=== PATIENT | female | born 1940 | race Caucasian/White ===

== ENCOUNTER 2016-02-04 14:23 | Inpatient (IN) | payer OTHER, MEDICARE ==
--- NOTE | 2016-01-29 22:13 | MH ---
cc: SOTO JOHNSON DATE OF ADMISSION 02/22/2016 PREOPERATIVE DIAGNOSIS Osteoarthritis right hip. PROCEDURE Right total hip arthroplasties. CHIEF COMPLAINT AND HISTORY OF PRESENT ILLNESS This 75-year-old female has a greater than one-year history of right hip and knee pain. The patient initially presented for knee pain at which time it was noted that she had advanced changes involving her right hip. Her knee x-ray showed actually more involvement of her contralateral knee. The patient was referred for an intra-articular injection of the right hip which did improve both her right hip and knee symptomatology for several months. The patient, however, has had recurrence. She is very limited in her activity. She has been unresponsive to nonoperative measures including nonsteroidal anti-inflammatory medication, activity modification, injection and attempts at weight loss. X-rays do show advanced osteoarthritic changes involving the right hip with [id number] apposition, osteophyte formation and subchondral sclerosis. Given the alternatives of treatment, the patient presents for total hip arthroplasty at this time. PAST MEDICAL HISTORY 1. History of squamous cell cancer, 2. Depression, 3. Hypertension, 4. Hyperlipidemia 5. Osteoporosis. PAST SURGICAL HISTORY 1. Appendectomy. 2. Skin cancer removal 3. Breast biopsy 4. Nasal polyp removal, 5. Hysterectomy, 6. Appendectomy 7. Tonsillectomy. ALLERGIES ADHESIVE TAPE AUGMENTIN BEE VENOM EPINEPHRINE LORTAB VELOSEF MEDICATIONS Current are 1. Tylenol #3 2. Alprazolam 0.5 mg. 3. Atorvastatin 80 mg. 4. Azithromycin 250 mg. 5. Diclofenac 75 mg 6. Glycerin 45 mcg. 7. Furosemide 20 mg. 8. Lisinopril. 9. Hydrochlorothiazide 10/12.5. 10. Meloxicam 11. Potassium chloride ER 10 mEq. 12. Sertraline 100 mg. 13. Tizanidine 2 mg. 14. Tramadol 50 mg 15. Triamcinolone 0.1% topical FAMILY HISTORY History of heart disease, glaucoma, thyroiditis and diabetes. SOCIAL HISTORY The patient denies tobacco use. She uses alcohol occasionally. She is [id number]. REVIEW OF SYSTEMS Otherwise noncontributory. PHYSICAL EXAMINATION VITAL SIGNS: Height 5 feet 2 inches, weight 220, BMI 40.2, blood pressure 114/82 GENERAL: An otherwise healthy female in no obvious distress. HEENT: Normocephalic, atraumatic. Pupils equal, round and reactive to light. Extraocular muscles are intact. Oropharynx is clear. NECK: Supple. LUNGS: Clear to auscultation. HEART: Regular rate and rhythm. ABDOMEN: Soft, nondistended. Bowel sounds are present. and RECTAL: Examinations are deferred. EXTREMITIES: No cyanosis, clubbing or edema. She has a marked restricted active and passive range of motion of the right hip. This tracked pain to the groin, thigh and knee regions. The right knee has a mild fullness of the synovium and palpable tenderness medially. She has a negative Shirlene's. She is stable to ligamentous testing. NEUROLOGIC: No focal deficit. She does have 2+ edema distally. ASSESSMENT Advanced osteoarthritis right hip. PLAN Given the alternatives of treatment, the patient does wish to pursue total hip arthroplasty based on the persistent nature of her symptomatology, its limitation of her daily activity and its unresponsiveness to treatment. The nature of the planned surgical procedure, risks, expected benefits, as well as the postoperative expectations have been discussed with her in detail. In addition, the alternatives of treatment risk of same were discussed. The possibility of the procedure not improving her symptomatology was discussed and she acknowledges full understanding and consents to it. MD ROSLYN Aiken/ /9:07 PM /9:52 PM
[~2016-02-04] VITALS: Ht 157.5 cm; Wt 108.5 kg
[2016-02-05] MEDS ORDERED: MELA1TAB18 PO (14:05)
[2016-02-05] MEDS ORDERED: POTA10TA2 PO (14:05)
[2016-02-05] MEDS ORDERED: MISCCAP32 PO (14:05)
[2016-02-05] MEDS ORDERED: SERT-129 PO (14:05)
[2016-02-05] MEDS ORDERED: STOO100C PO (14:05)
[2016-02-05] MEDS ORDERED: LISI10TA PO (14:05)
[2016-02-05] MEDS ORDERED: MULTTAB67 PO (14:05)
[2016-02-05] MEDS ORDERED: MOBI7.5T PO (14:05)
[2016-02-05] MEDS ORDERED: MAGN200T PO (14:05)
[2016-02-05] MEDS ORDERED: ADVA100A INH (14:13)
[2016-02-05] MEDS ORDERED: ATOR40TA16 PO (14:13)
[2016-02-05] MEDS ORDERED: ZOVI400T PO (14:13)
[2016-02-05] MEDS ORDERED: ASPI81TA81 PO (14:13)
[2016-02-05] MEDS ORDERED: VENTAER INH (14:13)
[2016-02-05] MEDS ORDERED: CALC600T25 PO (14:13)
[2016-02-05] MEDS ORDERED: CHOL1TAB42 PO (14:13)
[2016-02-05] MEDS ORDERED: COEN200C4 PO (14:13)
[2016-02-05] MEDS ORDERED: BUPR150XL PO (14:13)
[2016-02-05] MEDS ORDERED: ALPR0.5T3 PO (14:13)
[2016-02-22] VITALS (8 sets, daily range): BP systolic 94–142; BP diastolic 41–70; PULSE 78–90; RESP 12–20; TEMP 97.5–98.7; O2SAT 96–100
[2016-02-22] MEDS ORDERED: SODIUM CHLORIDE 0.9% INJ 100 ML ONE (06:59)
[2016-02-22] MEDS ORDERED: VANCOMYCIN 1000 MG/NS 250 ML (for <70 kg) IV SCH ×2 (07:00)
[2016-02-22] MEDS ORDERED: CLINDAMYCIN 900 MG/NS 100 ML IV SCH ×2 (07:00)
[2016-02-22] MEDS ORDERED: GENTAMICIN SULFATE 80 MG/2 ML VIAL ONE (07:09)
[2016-02-22] MEDS ORDERED: METOPROLOL TARTRATE 25 MG TAB PO PRN (07:15)
[2016-02-22] MEDS ORDERED: INSULIN HUMAN REGULAR 1,000 UNITS/10 ML VIAL SQ PRN (07:15)
[2016-02-22] MEDS ORDERED: SODIUM CHLORID 0.9% 500 ML IV SCH (07:15)
[2016-02-22] MEDS ORDERED: FURO1TAB62 PO (07:19)
[2016-02-22] MEDS: LACTATED RINGER'S 1000 ML IV SCH (07:29)
[2016-02-22] MEDS: CHLORHEXIDINE GLUCONATE 4% SOLN 120 ML BTL TOP SCH (07:29)
[2016-02-22] MEDS ORDERED: MIDAZOLAM HCL 5 MG/5 ML VIAL ONE ×2 (07:40→12:00)
[2016-02-22] MEDS ORDERED: ACETAMINOPHEN 1000 MG/100 ML VIAL IV ONE (07:40)
[2016-02-22] MEDS ORDERED: FAMOTIDINE 20 MG/2 ML VIAL ONE (07:40)
[2016-02-22] MEDS ORDERED: DEXAMETHASONE SOD PHOS 4 MG/ML VIAL ONE (07:41)
[2016-02-22] MEDS ORDERED: ONDANSETRON HCL 4 MG/2 ML VIAL ONE (07:41)
[2016-02-22] MEDS ORDERED: fentaNYL CITRATE 250 MCG/5 ML AMP ONE ×2 (07:41→11:31)
--- NOTE | 2016-02-22 11:13 | PD.OP ---
cc: Ariel Ruiz MD Operative Report Date of Surgery: Feb 22, 2016 Preoperative Diagnosis: (1) Osteoarthritis of right hip Postoperative Diagnosis: (1) Osteoarthritis of right hip Procedure: Right total hip arthroplasty Implants used: Biomet Bi-Metric size 10 press-fit femoral component, size 50 press-fit acetabular cup with a 36 mm ceramic head and a +6 neck length with 2 acetabular screws Anesthesia: General Surgeon: Ariel Ruiz Business Development Assistant(s): Monisha Naidu PA-C (Ashley) The surgical procedure was assisted by my physician's library serials assistant. Her presence was necessary throughout the case for manipulation and positioning of the surgical extremity. My PA was assisting me throughout the duration of this procedure. The skill set of the physician library serials assistant was medically necessary to complete this procedure. During the surgical case the assembler surgical garment was working at the back table and the physician library serials assistant was directly assisting me. Operation and Findings: Indications: This 75-year-old female has a greater than one-year history of right hip and knee pain. Patient initially presented for knee pain which time was noted she had advanced changes involving her right hip. She was referred for an intra-articular injection which did improve both her right hip and knee symptomatology for several months. She has however had a recurrence. His been progressive. She is very limited in her activity. X-rays are consistent with advanced osteoarthritic changes with [id number] apposition, osteophyte formation and subchondral sclerosis. Given the alternatives of the treatment she presents for total hip arthroplasty. Procedure and findings: The patient was taken to the operative suite and after undergoing an adequate level of general anesthesia was placed in the lateral decubitus position on the operating table. Preoperative antibiotics consisted of vancomycin 1 g IV and clindamycin 900 mg IV. The right lower extremity was then prepped and draped in usual sterile fashion with alcohol and Hibiclens. A standard posterior lateral approach the hip was made with an incision centered over the greater trochanter. This was carried down to skin and subcutaneous tense tissue with a knife. Hemostasis was obtained with cautery. The iliotibial band was identified distally and the gluteus kieran fascia proximally. These were split longitudinally. This brought the greater trochanteric bursa into view which was partially excised. The short external rotators were released from the posterior aspect of the femur up to the level of the piriformis. This was tagged. The sciatic nerve was palpable in the depths of the wound and avoided. A T capsulotomy incision was made. A joint effusion was evacuated. The hip was then easily dislocated. She was noted to be marked degenerative changes with total obliteration of the articular cartilage. A neck cut was made utilizing an osteotomy guide. The head was then sized on the back table. The labrum was excised. Soft tissue was removed from the floor of the acetabulum. The exposure was difficult secondary to the patient's morbid obesity. The acetabulum was then sequentially reamed up to a size 49 in approximately 45 of abduction and 25 of anteversion. A size 50 trial was seated and gave good fit and fill. There was noted to be a slight deficiency of the posterior wall. In addition, the medial floor of the acetabulum was soft and therefore cannot be deepened. This component was therefore selected. The wound was thoroughly irrigated with pulse lavage. The 50 acetabular cup was then impacted into place. 2 cancellus bone screws were seated through the cup. The liner was then seated. Attention was then focused on the proximal femur which was sequentially reamed and broached up to a size 10. With the size [address] trial reductions were completed. The +6 neck length gave the best range of motion and stability with equalization of limb lengths. These components were therefore selected. The wound was again thoroughly irrigated with pulse lavage. The size 10 Bi-Metric stem was then impacted in the place. The 36 ceramic head was then impacted onto the proximal aspect of the stem with a Rosas taper fit. Reduction was then accomplished and good range of motion, stability and equalization of limb lengths again noted. The wound was again thoroughly irrigated with pulse lavage. Hemovac drains were left in place. Incision was closed in layers utilizing #1 Tycron and #1 Vicryl on the posterior capsule, #1 Vicryl on the iliotibial band and gluteus Kieran fascia, 0 Vicryl suture on the deep tissue, 2-0 Vicryl suture and the subcutaneous tense tissue and caden on the skin. Sterile dressings were applied, the patient was placed into an abduction pillow, awakened and transferred to the hospital bed. He was then taken to the recovery room in stable condition. Estimated blood loss: 800 cc Complications: None Ariel Ruiz MD Feb 22, 2016 11:13
[2016-02-22] MEDS ORDERED: diphenhydrAMINE HCL 50 MG/ML VIAL IV PRN (11:15)
[2016-02-22] MEDS ORDERED: NALOXONE HCL 0.4 MG/ML AMP IV PRN (11:15)
[2016-02-22] MEDS ORDERED: MORPHINE SULFATE 8 MG/ML INJ IV PUSH PRN (11:15)
[2016-02-22] MEDS ORDERED: ONDANSETRON HCL 4 MG/2 ML VIAL IVP PRN (11:15)
[2016-02-22] MEDS ORDERED: BISACODYL 10 MG SUPP PR PRN (11:15)
[2016-02-22] MEDS ORDERED: MISCELLANEOUS PHARMACY INFORMATION XX ONE (11:15)
[2016-02-22] MEDS ORDERED: ACETAMINOPHEN 325 MG TAB PO PRN ×2 (11:15→22:30)
[2016-02-22] MEDS ORDERED: ALUMINUM/MAGNESIUM/SIMETH 30 ML CUP PO PRN (11:15)
[2016-02-22] MEDS ORDERED: TEMAZEPAM 15 MG CAP PO PRN (11:15)
[2016-02-22] MEDS ORDERED: POVIDONE IODINE 10% SOLN 118 ML BOTTLE TOPICAL PRN (11:15)
[2016-02-22] MEDS ORDERED: SODIUM CHLORIDE 0.9% FLUSH 5 ML FLUSH IVF PRN (11:15)
[2016-02-22] MEDS ORDERED: oxyCODONE/ACETAMINOPHEN 5 MG/325 MG TAB PO PRN (11:15)
[2016-02-22] MEDS ORDERED: Post-op Orders (for Pharmacy) MISC XX ONE (11:15)
[2016-02-22] MEDS ORDERED: MISCELLANEOUS NURSING INFORMATION XX PRN (11:15)
[2016-02-22] MEDS ORDERED: *morphine SULFATE 8 MG/ML PERIprocedure ONLY ONE (11:25)
[2016-02-22] MEDS ORDERED: DO NOT ADM ANY ANTICOAGULANT DRUGS XX PRN (11:30)
[2016-02-22] MEDS ORDERED: MORPHINE SULFATE 4 MG/ML INJ ONE (11:31)
[2016-02-22] MEDS ORDERED: *RESP: ALBUTEROL 2.5 MG/3 ML NEB (PRN) PERIprocedural Use ONLY NEB ONE (11:44)
[2016-02-22] MEDS ORDERED: LACTATED RINGER'S 1000 ML INJ 2,000 ML IV ONE (12:00)
[2016-02-22] MEDS ORDERED: ONDANSETRON HCL 4 MG/2 ML VIAL IV PUSH ONE (12:00)
[2016-02-22] MEDS: MORPHINE SULFATE 30 MG/30 ML PCA IV SCH (12:20)
[2016-02-22 12:21] LABS: HEMATOCRIT 31.4 % (35.0-46.0); REVIEW FLAG FINAL
[2016-02-22] MEDS: LACTATED RINGER'S 1000 ML INJ 1,000 ML IV SCH ×2 (12:24→21:42)
--- NOTE | 2016-02-22 13:07 | PD.CONS ---
[facility] By Reason for Consult medical management Primary Care Physician Cinthia Tolentino Diagnoses: History of Present Illness patient is a 75 y/o female with history of osteoarthritis,hypertension and dyslipidemia who underwent right total hip arthroplasty today. at the time of my evaluation she was in no acute distress but complaining of pain to the right hip. d/w the RN and reportedly was anxious earlier for which she received a dose of versed. Review of Systems Constitutional: DENIES: Fever, Weight loss, Chills, Night Sweats Eyes: DENIES: Blurred vision, Diplopia, Vision loss, Double Vision Ears, nose, mouth, throat: DENIES: Tinnitus, Vertigo, Throat pain, Epistaxis Respiratory: DENIES: Apneas, Cough, Snoring, Wheezing, Hemoptysis, Sputum production, Shortness of breath Cardiovascular: DENIES: Chest pain, Palpitations, Syncope, Dyspnea on Exertion , PND, Lower Extremity Edema, Orthopnea, Claudication Gastrointestinal: DENIES: Abdominal pain, Black stools, Bloody stools, Constipation, Diarrhea, Nausea, Vomiting, Difficulty Swallowing, Anorexia Genitourinary: DENIES: Urinary frequency, Urgency, Hematuria, Dysuria Musculoskeletal: COMPLAINS OF: Joint pain (right hip), DENIES: Muscle aches, Stiffness, Joint Swelling Integumentary: DENIES: Rash Neurologic: DENIES: Abnormal gait, Headache, Localized weakness, Paresthesias, Seizures, Speech Problems, Tremor, Poor Balance Psychiatric: COMPLAINS OF: Agitation, DENIES: Anxiety, Confusion, Mood changes , Depression, Hallucinations, Suicidal Ideation, Homicidal Ideation, Delusions Past Family Social History Allergies: Coded Allergies: Adhesives (Unverified Allergy, Severe, SKIN TEAR, 02/05/16) Augmentin (Unverified Allergy, Severe, TONGUE SWELLING, 02/05/16) Bee Sting (Verified Allergy, Severe, swelling, 02/22/16) Lortab (Unverified Allergy, Severe, ITCH, 02/05/16) Epinephrine (Unverified Adverse Reaction, Severe, SHAKING TACHYCARDIA, ) Uncoded Allergies: CHEMICALS/ PERFUMES (Allergy, Severe, REACTIVE ASTHMA, 09/09/15) VELOSEF (Allergy, Severe, VAGINAL LESIONS, 09/09/15) Past Medical History osteoarthritis hypertension dyslipidemia depression Past Surgical History right breast lumpectomy ARMINDA and BSO/ appendectomy tonsillectomy Reported Medications alprazolam lisinopril/hctz ventolin multivitamin calcium/ vit d lasix kcl sertraline oxycodone Active Ordered Medications Current Medications Chlorhexidine Gluconate 1 applic 1 applic ONCE TOP Last administered on 07:29; Start 02/22/16 at 07:00; Stop 02/25/16 at 06:59 Vancomycin HCl 1000 mg/Sodium Chloride 250 ml @ 250 mls/hr HAIRSPRING CUTTER IV Last administered on 02/22/16 07:36; Start 02/22/16 at 07:00; Stop 02/25/16 at 06:59 Clindamycin Phosphate 900 mg/ Sodium Chloride 106 ml @ 212 mls/hr HAIRSPRING CUTTER IV Last administered on 02/22/16 07:30; Start 02/22/16 at 07:00 Lactated Ringer's 1,000 ml @ 30 mls/hr Q24H IV Last administered on 02/22/16 07:29; Start 02/22/16 at 07:15 Sodium Chloride (NS 500 ml Inj) 500 ml @ 30 mls/hr [id number] IV ; Start 02/22/16 at 07:15; Stop 02/23/16 at 07:14 Insulin Human Regular (NovoLIN R INJ) See Protocol Table ... UNSCH X1 PRN SQ SEE PROTOCOL; Start 02/22/16 at 07:15; Stop 02/23/16 at 07:14 Metoprolol Tartrate 25 mg 25 mg UNSCH X1 PRN PO SEE LABEL COMMENTS; Start at 07:15; Stop 02/23/16 at 07:14 Sodium Chloride (NS Inj) 100 ml @ As Directed STK-MED ONCE .ROUTE ; Start at 06:59; Stop 02/22/16 at 07:05; Status DC Gentamicin Sulfate (Gentamicin Inj) 240 mg STK-MED ONCE .ROUTE Last administered on 02/22/16 09:00; Start 02/22/16 at 07:09; Stop 02/22/16 at 07:10; Status DC Acetaminophen (Ofirmev Inj) 1,000 mg STK-MED ONCE IV ; Start 02/22/16 at 07:40; Stop 02/22/16 at 07:43; Status DC Famotidine (Pepcid Inj) 20 mg STK-MED ONCE .ROUTE ; Start 02/22/16 at 07:40; Stop 02/22/16 at 07:43; Status DC Midazolam HCl (Versed Inj) 5 mg STK-MED ONCE .ROUTE ; Start 02/22/16 at 07:40; Stop 02/22/16 at 07:43; Status DC Fentanyl Citrate (fentaNYL INJ) 250 mcg STK-MED ONCE .ROUTE ; Start 02/22/16 at 07:41; Stop 02/22/16 at 07:43; Status DC Dexamethasone Sodium Phosphate (Decadron Inj) 4 mg STK-MED ONCE .ROUTE ; Start 02/22/16 at 07:41; Stop 02/22/16 at 07:43; Status DC Ondansetron HCl 4 mg 4 mg STK-MED ONCE .ROUTE ; Start 02/22/16 at 07:41; Stop 02/22/16 at 07:43; Status DC Lactated Ringer's (Lr 1000 ml Inj) 1,000 ml @ 125 mls/hr Q8H IV Last administered on 02/22/16t 12:24; Start 02/22/16 at 11:13 IV Flush (NS Flush) 2 ml UNSCH PRN IVF FLUSH AFTER USING IV ACCESS; Start at 11:15 IV Flush 2 ml 2 ml BID IVF ; Start 02/22/16 at 21:00 Clindamycin Phosphate/Sodium Chloride (Cleocin Inj/NS Inj) 106 ml @ 200 mls/hr Q8H IV ; Start 02/22/16 at 15:00; Stop 02/23/16 at 07:32 Miscellaneous Information (Post-op Orders (for Pharmacy)) STAT ONCE XX ; Start 02/22/16 at 11:15; Stop 02/22/16 at 11:51; Status DC Enoxaparin Sodium (Lovenox Inj) 40 mg Q24H SQ ; Start 02/23/16 at 10:00 Miscellaneous Information UNSCH PRN XX SEE LABEL COMMENTS; Start 02/22/16 at 11 :15 Miscellaneous Medication ([facility]acy Information) ONCE ONCE XX ; Start 02/21 at 11:15; Stop 02/22/16 at 11:45; Status DC Morphine Sulfate (Morphine Inj) 4 mg Q3H PRN IV PUSH Pain >7 when off UI UX WEB DEVELOPER; Start 02/22/16 at 11:15 Oxycodone/ Acetaminophen (Percocet 5-325 Mg) 1 tab Q4H PRN PO PAIN LESS THAN 5 ON SCALE; Start 02/22/16 at 11:15 Oxycodone/ Acetaminophen (Percocet 5-325 Mg) 2 tab Q4H PRN PO PAIN SCALE 5 TO 10; Start 02/22/16 at 11:15 Acetaminophen (Tylenol) 650 mg Q6H PRN PO TEMPERATURE > 101 F; Start 02/22/16 at 11:15 Multivitamins/ Minerals Therapeutic (Theragran M Tab) 1 tab BID PO ; Start 02/22 at 21:00; Stop 04/23/16 at 20:59 Ondansetron HCl (Zofran Inj) 4 mg Q6H PRN IVP NAUSEA OR VOMITING; Start at 11:15 Docusate Sodium (Colace) 100 mg BID PO ; Start 02/23/16 at 21:00 Al Hydrox/Mg Hydrox/Simethicone (Mag-Al Plus Susp Liq) 30 ml Q6H PRN PO INDIGESTION; Start 02/22/16 at 11:15 Temazepam (Restoril) 15 mg HS PRN PO SLEEP; Start 02/22/16 at 11:15 Bisacodyl (Dulcolax Supp) 10 mg DAILY PRN [place] CONSTIPATION; Start 02/22/16 at 11: 15 Magnesium Hydroxide (Milk Of Magnesia Liq) 30 ml DAILY PRN PO CONSTIPATION; Start 02/22/16 at 11:15 Povidone Iodine (Betadine 10% Top Soln) 30 applic UNSCH X1 PRN TOPICAL WOUND CARE; Start 02/22/16 at 11:15; Stop 02/24/16 at 11:14 Naloxone HCl (Narcan Inj) 0.4 mg UNSCH PRN IV RESPIRATORY RATE LESS THAN 10; Start 02/22/16 at 11:15; Stop 02/24/16 at 11:14 Diphenhydramine HCl (Benadryl Inj) 25 mg Q6H PRN IV ITCHING; Start 02/22/16 at 11:15 Morphine Sulfate (Morphine 1 Mg/ ml UI UX WEB DEVELOPER) 30 mg UNSCH IV Last administered on t 12:20; Start 02/22/16 at 11:15; Stop 02/24/16 at 11:14 UI UX WEB DEVELOPER Dosage Infused (Pha) 1 Q8HR .XX ; Start 02/22/16 at 14:00; Stop 02/24/16 at 13:59 Morphine Sulfate (*morphine INJ PERIprocedure ONLY) 8 mg STK-MED ONCE .ROUTE ; Start 02/22/16 at 11:25; Stop 02/22/16 at 11:26; Status DC Miscellaneous Information ALL NURSING DEPARTME... UNSCH PRN XX SEE LABEL COMMENTS; Start 02/22/16 at 11:30; Stop 02/23/16 at 11:29 Fentanyl Citrate (fentaNYL INJ) 250 mcg STK-MED ONCE .ROUTE ; Start 02/22/16 at 11:31; Stop 02/22/16 at 11:32; Status DC Morphine Sulfate (Morphine Inj) 4 mg STK-MED ONCE .ROUTE ; Start 02/22/16 at 11: 31; Stop 02/22/16 at 11:32; Status DC Albuterol Sulfate (*ALBUTEROL NEB PERIprocedure ONLY) 2.5 mg STK-MED ONCE NEB ; Start 02/22/16 at 11:44; Stop 02/22/16 at 11:45; Status DC Midazolam HCl (Versed Inj) 5 mg STK-MED ONCE .ROUTE ; Start 02/22/16 at 12:00; Stop 02/22/16 at 12:01; Status DC Social History no smoking or drinking. Physical Exam Vital Signs Vital Signs Date Time Temp Pulse Resp B/P Pulse Ox O2 Delivery O2 Flow Rate FiO2 02/22/16 12:30 79 15 101/52 100 Nasal Cannula 3 02/22/16 12:20 15 02/22/16 12:15 65 16 107/54 100 Nasal Cannula 3 02/22/16 12:00 81 16 108/47 100 Nasal Cannula 3 02/22/16 11:45 69 14 78/41 100 Nasal Cannula 3 02/22/16 11:30 64 16 97/45 100 Nasal Cannula 3 02/22/16 11:15 65 15 88/41 100 Nasal Cannula 3 02/22/16 11:10 96.4 77 15 102/55 100 Nasal Cannula 3 02/22/16 07:20 98.6 90 18 142/70 98 Physical Exam GENERAL: This is a well-nourished, well-developed patient, in no apparent distress. SKIN: No rashes, ecchymoses or lesions. Cool and dry. HEAD: Atraumatic. Normocephalic. No temporal or scalp tenderness. EYES: Pupils equal round and reactive. Extraocular motions intact. No scleral icterus. No injection or drainage. ENT: Nose without bleeding, purulent drainage or septal hematoma. Throat without erythema, tonsillar hypertrophy or exudate. Uvula midline. Airway patent. NECK: Trachea midline. No JVD or lymphadenopathy. Supple, nontender, no meningeal signs. CARDIOVASCULAR: Regular rate and rhythm without murmurs, gallops, or rubs. RESPIRATORY: Clear to auscultation. Breath sounds equal bilaterally. No wheezes , rales, or rhonchi. GASTROINTESTINAL: Abdomen soft, non-tender, nondistended. No hepato-splenomegaly , or palpable masses. No guarding. MUSCULOSKELETAL: Extremities without clubbing, cyanosis, or edema. No joint tenderness, effusion, or edema noted. No calf tenderness. Negative Homans sign bilaterally. NEUROLOGICAL: Awake and alert. Cranial nerves II through XII intact. Motor and sensory grossly within normal limits. Five out of 5 muscle strength in all muscle groups. Normal speech. Laboratory Laboratory Tests Test 02/22/16 02/22/16 07:10 12:00 Blood Type O NEGATIVE O NEGATIVE Antibody Screen POSITIVE Antibody Identification Anti-D Antigen Identification C Antigen - NEGATIVE Crossmatch Leukocyte-Reduced Red Blood Cells Blood Bank Comment Hemoglobin 10.2 Hematocrit 31.4 Result Diagram: 02/22/16 1200 Assessment and Plan Assessment and Plan A/P - osteoarthritis- s/p right total hip arthroplasty continue with pain control and PT- management per ortho -hypertension with hypotensive episode;hold BP meds for now- continue IV fluid will resume home BP meds gradually when BP is more stable. -dyslipidemia/ depression; resume home meds -DVT prophylaxis with lovenox- per ortho thank you for the consult. Discussed Condition With the patient and RN. Jaja Sawant MD Feb 22, 2016 13:07
[2016-02-22] MEDS ORDERED: MIDAZOLAM HCL 5 MG/5 ML VIAL IV ONE (13:30)
[2016-02-22] MEDS ORDERED: MIDAZOLAM HCL 5 MG/5 ML VIAL IV SCH (13:45)
[2016-02-22] MEDS: PCA - TOTAL MG MORPHINE DELIVERED PER SHIFT SCH ×2 (14:00→22:00)
--- NOTE | 2016-02-22 14:19 | RADRPT ---
EXAM DATE/TIME: 02/22/2016 11:31 [facility] COMPARISON: No previous studies available for comparison. INDICATIONS : Post op right hip MEDICAL HISTORY : None. SURGICAL HISTORY : None. ENCOUNTER: Initial ACUITY: 1 day PAIN SCORE: Non-responsive. LOCATION: Right hip FINDINGS: View of the right hip was obtained. Femoral neck is intact. No fracture is seen. The soft tissues are unremarkable. CONCLUSION: Total right hip prosthesis without evidence of upper pain feature. No fracture is vis ualized. Shima Sears MD on February 22, 2016 at 12:39 Board Certified Radiologist. This report was verified electronically.
[2016-02-22] MEDS ORDERED: PHENYLEPH/NS 1000 MCG/10 ML SYR IV ONE (14:46)
[2016-02-22] MEDS ORDERED: NEOSTIGMINE 3 MG/3 ML SYR IV ONE (14:46)
[2016-02-22] MEDS ORDERED: PROPOFOL 200 MG/20 ML AMP IV ONE (14:46)
[2016-02-22] MEDS ORDERED: ALBUTEROL SULFATE 90 MCG/ACT HFA 8 GM INHALER INH PRN (15:00)
[2016-02-22] MEDS: CLINDAMYCIN INJ 900 MG in SODIUM CHLORIDE 0.9% INJ 100 ML IV SCH (15:00)
[2016-02-22] MEDS ORDERED: LACTATED RINGER'S 1000 ML INJ 500 ML IV ONE ×2 (15:30→19:00)
[2016-02-22] MEDS: ALPRAZolam 0.5 MG TAB PO PRN (15:45)
[2016-02-22] MEDS ORDERED: LACTATED RINGER'S 1000 ML INJ 500 ML IV SCH (16:00)
--- NOTE | 2016-02-22 21:10 | HHI.PR ---
Addendum to Inpatient Note Addendum Reason: Additional Documentation Additional Information S: Medical team paged at approximately 2000 for Citlali. Nursing staff reports the patient is postop day 0 from total right hip replacement with a past medical history of hypertension. Citlali called for repeated blood pressures in the 70s to 80s systolic. Patient is currently asymptomatic. Blood pressure medications held earlier in the day for hypotensive blood pressures. She has had minimal urine output and less than 50cc of blood loss in her incision drain. She currently has no complaints and denies any fevers, chills, chest pain, shortness of breath, NVD, or calf tenderness. O: GENERAL: Obese 75 y/o F lying flat in bed in no acute distress. SKIN: Warm and dry. No rash. Greater than 2 seconds capillary refill. EYES: No scleral icterus. No injection or drainage. PERRLA. EOMI. HENT: Normocephalic. Atraumatic. Mucous membranes dry. CARDIOVASCULAR: Regular rate and rhythm without obvious murmurs, gallops, or rubs. RESPIRATORY: Breath sounds equal bilaterally with minor wheezes in the bilateral lung bases. GASTROINTESTINAL: Abdomen soft, non-tender, nondistended. BS WNL. MUSCULOSKELETAL: No cyanosis or edema. Strength grossly WNL. RLE: Surgical incision covered with aseptic bandage with drain in place. No visible signs of hemorrhage or infection. Surgical drain in place with less than 50 mL of blood loss. Neurovascularly intact throughout the right lower extremity. 2+ pulses. NEURO/PSYCH: Afocal. Awake, alert, and oriented x3. A: Mrs. Linton is a 75-year-old female with past medical history of hypertension who is postop day 0 presenting with asymptomatic hypotension. P: Patient currently asymptomatic and in stable condition Postop H/H: 10.2/31.4 Blood pressure recheck: 95/53 CBC, CMP, PT/INR, and PTT ordered 500 mL NS bolus ordered with a blood pressure to be rechecked after bolus Hospitalist on-call notified of patient's status Jose Daniel Gray MD R1 Feb 22, 2016 21:10
[2016-02-22] MEDS: SERTRALINE HCL 100 MG TAB PO SCH (21:39)
[2016-02-22] MEDS: SODIUM CHLORIDE 0.9% FLUSH 5 ML FLUSH IVF SCH (21:39)
[2016-02-22] MEDS: ATORVASTATIN 40 MG TAB PO SCH (21:39)
[2016-02-22 21:42] LABS: AUTOMATED NEUTROPHIL # 8.4 TH/MM3 (1.8-7.7); BASOPHIL % 0.3 % (0.0-2.0); EOSINOPHIL % 0.1 % (0.0-4.0); HEMATOCRIT 27.1 % (35.0-46.0); HEMO FLAGS DIFF FINAL; LYMPH % 9.6 % (9.0-44.0); MONO % 12.2 % (0.0-8.0); NEUT % 77.8 % (16.0-70.0); PLATELET COUNT 218 TH/MM3 (150-450); RED BLOOD COUNT 3.08 MIL/MM3 (4.00-5.30); RED CELL DISTRIBUTION WIDTH 13.4 % (11.6-17.2); WHITE BLOOD COUNT 10.8 TH/MM3 (4.0-11.0)
--- NOTE | 2016-02-22 21:47 | HHI.PR ---
Addendum to Inpatient Note Addendum Reason: Additional Documentation Additional Information Patient seen with and son at bedside. She appears pale but is otherwise experiencing asymptomatic hypotension. She reports some SOB earlier but states that this was due to right hip post-op pain. BP measured while I was at bedside was 100/50 with MAP of 66.7. Awaiting results of labs; discussed possibility of need for transfusion with the patient and the family. Discussed with nursing; perform only manual blood pressures for now. Call as soon as results of labs available. Bernadette Chávez Feb 22, 2016 21:47
[2016-02-22 21:56] LABS: APTT (PATIENT) 25.6 SEC (24.3-30.1); PROTHROMBIN TIME - PATIENT 10.7 SEC (9.8-11.6)
[2016-02-22 21:57] LABS: ANION GAP 8 MEQ/L (5-15); AST (GOT) 30 U/L (15-37); BICARBONATE 24.8 MEQ/L (21.0-32.0); BLOOD UREA NITROGEN 18 MG/DL (7-18); CHLORIDE 107 MEQ/L (98-107); GLOMERULAR FILTRATION RATE 44 ML/MIN (>89); SODIUM (NA) 140 MEQ/L (136-145)
[2016-02-22 22:01] LABS: ALKALINE PHOSPHATASE 76 U/L (45-117); ALT (GPT) 39 U/L (10-53); TOTAL BILIRUBIN ADULT 0.6 MG/DL (0.2-1.0)
[2016-02-22] MEDS ORDERED: FUROSEMIDE 20 MG/2 ML VIAL IV ONE (22:30)
[2016-02-22] MEDS ORDERED: diphenhydrAMINE HCL 25 MG CAP PO PRN (22:30)
[2016-02-22] MEDS ORDERED: SODIUM CHLOR 0.9% 250 ML INJ 250 ML IV ONE (22:30)
[2016-02-23] VITALS (10 sets, daily range): BP systolic 98–141; BP diastolic 44–62; PULSE 88–123; RESP 16–21; TEMP 96.9–100.8; O2SAT 92–100
[2016-02-23] MEDS: CLINDAMYCIN INJ 900 MG in SODIUM CHLORIDE 0.9% INJ 100 ML IV SCH ×2 (01:34→06:05)
[2016-02-23] MEDS: LACTATED RINGER'S 1000 ML INJ 1,000 ML IV SCH ×3 (03:13→19:13)
[2016-02-23] MEDS: PCA - TOTAL MG MORPHINE DELIVERED PER SHIFT SCH ×2 (06:00→14:00)
[2016-02-23] MEDS: CHLORHEXIDINE GLUCONATE 4% SOLN 120 ML BTL TOP SCH (07:00)
[2016-02-23] MEDS: LACTATED RINGER'S 1000 ML IV SCH (07:15)
--- NOTE | 2016-02-23 07:20 | PD.ORT.PN ---
Subjective Post Op Day #: 1 Pain Scale: 7 Subjective Remarks The patient is awake alert and answers questions appropriately. She complains of right hip pain. She also complains of back and knee pain. She does get relief with use of the [employer] pump. She did require transfusion postoperatively. Objective Vitals Vital Signs Date Time Temp Pulse Resp B/P Pulse Ox O2 Delivery O2 Flow Rate FiO2 02/23/16 06:00 20 02/23/16 03:56 98.0 90 18 100/60 96 02/23/16 03:45 98.9 88 21 100 104/62 02/23/16 03:30 98.8 95 20 106/60 98 02/23/16 03:12 96 Nasal Cannula 2.00 02/23/16 01:26 98/58 02/22/16 23:45 98.7 83 20 94/64 100 02/22/16 23:36 98.2 88 18 98/62 96 02/22/16 23:30 98.5 88 20 98/62 96 02/22/16 22:00 20 02/22/16 21:35 101/50 02/22/16 21:00 Nasal Cannula 2.00 02/22/16 20:14 97 2.00 02/22/16 20:00 97.5 78 16 102/51 98 02/22/16 18:25 97.5 88 12 108/41 97 02/22/16 18:19 Nasal Cannula 2.00 02/22/16 18:00 97.6 86 16 108/54 99 Nasal Cannula 2 02/22/16 17:45 82 16 100/52 99 Nasal Cannula 2 02/22/16 17:30 81 16 108/55 99 Nasal Cannula 2 02/22/16 17:15 77 16 102/51 98 Nasal Cannula 2 02/22/16 17:02 82 16 91/46 100 Nasal Cannula 2 02/22/16 17:00 80 16 84/49 100 Nasal Cannula 2 02/22/16 16:30 78 16 94/43 99 Nasal Cannula 2 02/22/16 16:00 97.5 80 16 93/42 99 Nasal Cannula 2 02/22/16 15:30 84 16 91/39 99 Nasal Cannula 2 02/22/16 15:00 82 16 91/46 99 Nasal Cannula 2 02/22/16 14:00 73 16 92/47 98 Nasal Cannula 2 02/22/16 14:00 20 02/22/16 13:10 71 16 91/52 97 Nasal Cannula 2 02/22/16 13:00 97.2 76 16 104/65 100 Nasal Cannula 3 02/22/16 12:30 79 15 101/52 100 Nasal Cannula 3 02/22/16 12:20 15 02/22/16 12:15 65 16 107/54 100 Nasal Cannula 3 02/22/16 12:00 81 16 108/47 100 Nasal Cannula 3 02/22/16 11:45 69 14 78/41 100 Nasal Cannula 3 02/22/16 11:30 64 16 97/45 100 Nasal Cannula 3 02/22/16 11:15 65 15 118/46 100 Nasal Cannula 3 02/22/16 11:10 96.4 77 15 102/55 100 Nasal Cannula 3 02/22/16 07:20 98.6 90 18 142/70 98 I/O 02/22/16 02/22/16 02/22/16 02/23/16 02/23/16 02/23/16 07:00 15:00 23:00 07:00 15:00 23:00 Intake Total 3075 ml 1000 ml 1221 ml Output Total 1325 ml 680 ml 2120 ml Balance 1750 ml 320 ml -899 ml Intake Oral 480 ml IV Total 475 ml 1000 ml 741 ml Other 2600 ml Output Urine Total 300 ml 450 ml 2050 ml Drainage Total 225 ml 230 ml 70 ml Estimated Blood Loss 800 ml # Bowel Movements 0 Result Diagram: 02/22/16211602/22/162116 Other Results Laboratory Tests Test 02/22/16 21:17 Prothrombin Time 10.7 SEC (9.8-11.6) Prothromb Time International 1.0 RATIO Ratio Imaging Last 48 hours Impressions Hip X-Ray 02/22/16 0000 Signed Impressions: Service Date/Time: Monday, February 22, 2016 11:31 - CONCLUSION: Total right hip prosthesis without evidence of upper pain feature. No fracture is visualized. Shima Sears MD Procedures Right total hip arthroplasty 02/21/2015 Objective Remarks The right hip dressing is dry and intact. She moves her toes and ankle freely. There is no calf discomfort and negative Homans sign. Assessment & Plan Ortho Post Op Day #: 1 Problem List: (1) Osteoarthritis of right hip (2) Hyperlipemia (3) Hypertension (4) Depression (5) Morbid obesity with BMI of 40.0-44.9, adult Assessment and Plan The patient's with thick status is stable postoperative day #1. She will progress rehabilitation with therapy. Case management for discharge planning. Ariel Ruiz MD Feb 23, 2016 07:20
[2016-02-23] MEDS: ENOXAPARIN SODIUM 40 MG/0.4 ML SYRINGE SQ SCH (08:45)
[2016-02-23] MEDS: MORPHINE SULFATE 30 MG/30 ML PCA IV SCH (08:55)
[2016-02-23] MEDS ORDERED: buPROPion HCL 150 MG EXTENDED RELEASE TAB PO SCH (09:00)
--- NOTE | 2016-02-23 09:18 | HHI.PR ---
Subjective Remarks complaining of pain to the right hip. BP is overall better today. no chest pain, sob or dizziness. Objective Vitals Vital Signs Date Time Temp Pulse Resp B/P Pulse Ox O2 Delivery O2 Flow Rate FiO2 02/23/16 09:00 Nasal Cannula 2.00 02/23/16 07:15 Nasal Cannula 2.00 02/23/16 06:00 20 02/23/16 03:56 98.0 90 18 100/60 96 02/23/16 03:45 98.9 88 21 100 104/62 02/23/16 03:30 98.8 95 20 106/60 98 02/23/16 03:12 96 Nasal Cannula 2.00 02/23/16 01:26 98/58 02/22/16 23:45 98.7 83 20 94/64 100 02/22/16 23:36 98.2 88 18 98/62 96 02/22/16 23:30 98.5 88 20 98/62 96 02/22/16 22:00 20 02/22/16 21:35 101/50 02/22/16 21:00 Nasal Cannula 2.00 02/22/16 20:14 97 2.00 02/22/16 20:00 97.5 78 16 102/51 98 02/22/16 18:25 97.5 88 12 108/41 97 02/22/16 18:19 Nasal Cannula 2.00 02/22/16 18:00 97.6 86 16 108/54 99 Nasal Cannula 2 02/22/16 17:45 82 16 100/52 99 Nasal Cannula 2 02/22/16 17:30 81 16 108/55 99 Nasal Cannula 2 02/22/16 17:15 77 16 102/51 98 Nasal Cannula 2 02/22/16 17:02 82 16 91/46 100 Nasal Cannula 2 02/22/16 17:00 80 16 84/49 100 Nasal Cannula 2 02/22/16 16:30 78 16 94/43 99 Nasal Cannula 2 02/22/16 16:00 97.5 80 16 93/42 99 Nasal Cannula 2 02/22/16 15:30 84 16 91/39 99 Nasal Cannula 2 02/22/16 15:00 82 16 91/46 99 Nasal Cannula 2 02/22/16 14:00 73 16 92/47 98 Nasal Cannula 2 02/22/16 14:00 20 02/22/16 13:10 71 16 91/52 97 Nasal Cannula 2 02/22/16 13:00 97.2 76 16 104/65 100 Nasal Cannula 3 02/22/16 12:30 79 15 101/52 100 Nasal Cannula 3 02/22/16 12:20 15 02/22/16 12:15 65 16 107/54 100 Nasal Cannula 3 02/22/16 12:00 81 16 108/47 100 Nasal Cannula 3 02/22/16 11:45 69 14 78/41 100 Nasal Cannula 3 02/22/16 11:30 64 16 97/45 100 Nasal Cannula 3 02/22/16 11:15 65 15 118/46 100 Nasal Cannula 3 02/22/16 11:10 96.4 77 15 102/55 100 Nasal Cannula 3 I/O 02/22/16 02/22/16 02/22/16 02/23/16 02/23/16 02/23/16 07:00 15:00 23:00 07:00 15:00 23:00 Intake Total 3075 ml 1000 ml 1221 ml Output Total 1325 ml 680 ml 2120 ml Balance 1750 ml 320 ml -899 ml Intake Oral 480 ml IV Total 475 ml 1000 ml 741 ml Other 2600 ml Output Urine Total 300 ml 450 ml 2050 ml Drainage Total 225 ml 230 ml 70 ml Estimated Blood Loss 800 ml # Bowel Movements 0 Result Diagram: 02/22/16211602/22/162116 Imaging Last Impressions Hip X-Ray 02/22/16 0000 Signed Impressions: Service Date/Time: Monday, February 22, 2016 11:31 - CONCLUSION: Total right hip prosthesis without evidence of upper pain feature. No fracture is visualized. Shima Sears MD Objective Remarks GENERAL: This is a well-nourished, well-developed patient, in no apparent distress. CARDIOVASCULAR: Regular rate and regular rhythm without murmurs, gallops, or rubs. RESPIRATORY: Clear to auscultation. Breath sounds equal bilaterally. No wheezes , rales, or rhonchi. GASTROINTESTINAL: Abdomen soft, non-tender, nondistended. Normal, active bowel sounds MUSCULOSKELETAL: Extremities without clubbing, cyanosis, or edema. NEURO: Alert & Oriented x4 to person, place, time, situation. Moves all ext x4 Medications and IVs Current Medications Chlorhexidine Gluconate 1 applic 1 applic ONCE TOP Last administered on 07:29; Start 02/22/16 at 07:00; Stop 02/25/16 at 06:59 Vancomycin HCl 1000 mg/Sodium Chloride 250 ml @ 250 mls/hr CROP GRAIN [employer] IV Last administered on 02/22/16 07:36; Start 02/22/16 at 07:00; Stop 02/25/16 at 06:59 Clindamycin Phosphate 900 mg/ Sodium Chloride 106 ml @ 212 mls/hr CROP GRAIN OR [employer] F[employer]ER IV Last administered on 02/22/16 07:30; Start 02/22/16 at 07:00 Lactated Ringer's 1,000 ml @ 30 mls/hr Q24H IV Last administered on 02/22/16 07:29; Start 02/22/16 at 07:15 Sodium Chloride (NS 500 ml Inj) 500 ml @ 30 mls/hr [id number] IV ; Start 02/22/16 at 07:15; Stop 02/23/16 at 07:14; Status DC Insulin Human Regular (NovoLIN R INJ) See Protocol Table ... UNSCH X1 PRN SQ SEE PROTOCOL; Start 02/22/16 at 07:15; Stop 02/23/16 at 07:14; Status DC Metoprolol Tartrate 25 mg 25 mg UNSCH X1 PRN PO SEE LABEL COMMENTS; Start at 07:15; Stop 02/23/16 at 07:14; Status DC Sodium Chloride (NS Inj) 100 ml @ As Directed STK-MED ONCE .ROUTE ; Start at 06:59; Stop 02/22/16 at 07:05; Status DC Gentamicin Sulfate (Gentamicin Inj) 240 mg STK-MED ONCE .ROUTE Last administered on 02/22/16 09:00; Start 02/22/16 at 07:09; Stop 02/22/16 at 07:10; Status DC Acetaminophen (Ofirmev Inj) 1,000 mg STK-MED ONCE IV ; Start 02/22/16 at 07:40; Stop 02/22/16 at 07:43; Status DC Famotidine (Pepcid Inj) 20 mg STK-MED ONCE .ROUTE ; Start 02/22/16 at 07:40; Stop 02/22/16 at 07:43; Status DC Midazolam HCl (Versed Inj) 5 mg STK-MED ONCE .ROUTE ; Start 02/22/16 at 07:40; Stop 02/22/16 at 07:43; Status DC Fentanyl Citrate (fentaNYL INJ) 250 mcg STK-MED ONCE .ROUTE ; Start 02/22/16 at 07:41; Stop 02/22/16 at 07:43; Status DC Dexamethasone Sodium Phosphate (Decadron Inj) 4 mg STK-MED ONCE .ROUTE ; Start 02/22/16 at 07:41; Stop 02/22/16 at 07:43; Status DC Ondansetron HCl 4 mg 4 mg STK-MED ONCE .ROUTE ; Start 02/22/16 at 07:41; Stop 02/22/16 at 07:43; Status DC Lactated Ringer's (Lr 1000 ml Inj) 1,000 ml @ 125 mls/hr Q8H IV Last administered on 02/23/16 03:13; Start 02/22/16 at 11:13 IV Flush (NS Flush) 2 ml UNSCH PRN IVF FLUSH AFTER USING IV ACCESS; Start at 11:15 IV Flush 2 ml 2 ml BID IVF Last administered on 02/22/16 21:39; Start 02/22/16 at 21:00 Clindamycin Phosphate/Sodium Chloride (Cleocin Inj/NS Inj) 106 ml @ 200 mls/hr Q8H IV Last administered on 02/23/16 06:05; Start 02/22/16 at 15:00; Stop 02/22 at 07:32; Status DC Miscellaneous Information (Post-op Orders (for Pharmacy)) STAT ONCE XX ; Start 02/22/16 at 11:15; Stop 02/22/16 at 11:51; Status DC Enoxaparin Sodium (Lovenox Inj) 40 mg Q24H SQ Last administered on 02/23/16 08 :45; Start 02/23/16 at 10:00 Miscellaneous Information UNSCH PRN XX SEE LABEL COMMENTS; Start 02/22/16 at 11 :15 Miscellaneous Medication ([facility]) ONCE ONCE XX ; Start 02/21 at 11:15; Stop 02/22/16 at 11:45; Status DC Morphine Sulfate (Morphine Inj) 4 mg Q3H PRN IV PUSH Pain >7 when off CLIENT DELIVERY MANAGER; Start 02/22/16 at 11:15 Oxycodone/ Acetaminophen (Percocet 5-325 Mg) 1 tab Q4H PRN PO PAIN LESS THAN 5 ON SCALE Last administered on 02/23/16t 08:30; Start 02/22/16 at 11:15 Oxycodone/ Acetaminophen (Percocet 5-325 Mg) 2 tab Q4H PRN PO PAIN SCALE 5 TO 10; Start 02/22/16 at 11:15 Acetaminophen (Tylenol) 650 mg Q6H PRN PO TEMPERATURE > 101 F; Start 02/22/16 at 11:15 Multivitamins/ Minerals Therapeutic (Theragran M Tab) 1 tab BID PO ; Start 02/22 at 21:00; Stop 04/23/16 at 20:59 Ondansetron HCl (Zofran Inj) 4 mg Q6H PRN IVP NAUSEA OR VOMITING; Start at 11:15 Docusate Sodium (Colace) 100 mg BID PO ; Start 02/23/16 at 21:00 Al Hydrox/Mg Hydrox/Simethicone (Mag-Al Plus Susp Liq) 30 ml Q6H PRN PO INDIGESTION; Start 02/22/16 at 11:15 Temazepam (Restoril) 15 mg HS PRN PO SLEEP; Start 02/22/16 at 11:15 Bisacodyl (Dulcolax Supp) 10 mg DAILY PRN NV CONSTIPATION; Start 02/22/16 at 11: 15 Magnesium Hydroxide (Milk Of Magnesia Liq) 30 ml DAILY PRN PO CONSTIPATION; Start 02/22/16 at 11:15 Povidone Iodine (Betadine 10% Top Soln) 30 applic UNSCH X1 PRN TOPICAL WOUND CARE; Start 02/22/16 at 11:15; Stop 02/24/16 at 11:14 Naloxone HCl (Narcan Inj) 0.4 mg UNSCH PRN IV RESPIRATORY RATE LESS THAN 10; Start 02/22/16 at 11:15; Stop 02/24/16 at 11:14 Diphenhydramine HCl (Benadryl Inj) 25 mg Q6H PRN IV ITCHING; Start 02/22/16 at 11:15 Morphine Sulfate (Morphine 1 Mg/ ml CLIENT DELIVERY MANAGER) 30 mg UNSCH IV Last administered on t 08:55; Start 02/22/16 at 11:15; Stop 02/24/16 at 11:14 CLIENT DELIVERY MANAGER Dosage Infused (Pha) 1 Q8HR .XX Last administered on 02/23/16 06:00; Start 02/22/16 at 14:00; Stop 02/24/16 at 13:59 Morphine Sulfate (*morphine INJ PERIprocedure ONLY) 8 mg STK-MED ONCE .ROUTE Last administered on 02/22/16 11:25; Start 02/22/16 at 11:25; Stop 02/22/16 at 11: 26; Status DC Miscellaneous Information ALL NURSING DEPARTME... UNSCH PRN XX SEE LABEL COMMENTS; Start 02/22/16 at 11:30; Stop 02/23/16 at 11:29 Fentanyl Citrate (fentaNYL INJ) 250 mcg STK-MED ONCE .ROUTE ; Start 02/22/16 at 11:31; Stop 02/22/16 at 11:32; Status DC Morphine Sulfate (Morphine Inj) 4 mg STK-MED ONCE .ROUTE ; Start 02/22/16 at 11: 31; Stop 02/22/16 at 11:32; Status DC Albuterol Sulfate (*ALBUTEROL NEB PERIprocedure ONLY) 2.5 mg STK-MED ONCE NEB Last administered on 02/22/16 11:44; Start 02/22/16 at 11:44; Stop 02/22/16 at 11: 45; Status DC Midazolam HCl (Versed Inj) 5 mg STK-MED ONCE .ROUTE ; Start 02/22/16 at 12:00; Stop 02/22/16 at 12:01; Status DC Albuterol Sulfate (Proair Hfa Inh) 2 puff Q6HR PRN INH SHORTNESS OF BREATH; Start 02/22/16 at 15:00 Alprazolam (Xanax) 0.5 mg Q6H PRN PO ANXIETY Last administered on 02/22/16 15: 45; Start 02/22/16 at 15:00 Atorvastatin Calcium (Lipitor) 40 mg HS PO Last administered on 02/22/16 21:39 ; Start 02/22/16 at 21:00 Bupropion HCl (Wellbutrin Xl 24 Hr) 150 mg DAILY PO ; Start 02/23/16 at 09:00 Sertraline HCl (Zoloft) 100 mg BID PO Last administered on 02/22/16 21:39; Start 02/22/16 at 21:00 Midazolam HCl (Versed Inj) 2 mg ONCE ONCE IV Last administered on 02/22/16 13: 30; Start 02/22/16 at 13:30; Stop 02/22/16 at 13:31; Status DC Midazolam HCl (Versed Inj) 1 mg UNSCH IV ; Start 02/22/16 at 13:45; Stop at 13:46 Propofol (Diprivan 200 Mg/20 ml Inj) 200 mg STK-MED ONCE IV ; Start 02/22/16 at 14:46; Stop 02/22/16 at 14:47; Status DC Neostigmine Methylsulfate (Prostigmin Inj) 3 mg STK-MED ONCE IV ; Start 02/22/16 at 14:46; Stop 02/22/16 at 14:47; Status DC Phenylephrine HCl 1000 mcg 1,000 mcg STK-MED ONCE IV ; Start 02/22/16 at 14:46; Stop 02/22/16 at 14:47; Status DC Lactated Ringer's 500 ml @ 0 mls/hr BOLUS ONCE IV Last administered on 15:30; Start 02/22/16 at 15:30; Stop 02/22/16 at 15:31; Status DC Lactated Ringer's 500 ml @ 0 mls/hr BOLUS IV ; Start 02/22/16 at 16:00 Lactated Ringer's 500 ml @ 0 mls/hr BOLUS ONCE IV Last administered on 17:10; Start 02/22/16 at 19:00; Stop 02/22/16 at 19:01; Status DC Sodium Chloride (NS 250 ml Inj) 250 ml @ 15 mls/hr ONCE ONCE IV Last administered on 02/22/16 22:30; Start 02/22/16 at 22:30; Stop 02/23/16 at 15:09 Acetaminophen (Tylenol) 650 mg Q4H PRN PO SEE LABEL COMMENTS Last administered on 02/22/16 22:45; Start 02/22/16 at 22:30; Stop 02/23/16 at 02:31; Status DC Diphenhydramine HCl (Benadryl) 25 mg Q4H PRN PO SEE LABEL COMMENTS Last administered on 02/22/16 22:45; Start 02/22/16 at 22:30; Stop 02/23/16 at 02:31; Status DC Furosemide (Lasix Inj) 20 mg ONCE ONCE IV Last administered on 02/23/16 02:20 ; Start 02/22/16 at 22:30; Stop 02/22/16 at 22:35; Status DC A/P Assessment and Plan A/P - osteoarthritis- s/p right total hip arthroplasty continue with pain control and PT- management per ortho -hypertension with hypotensive episode;continue hold BP meds for now- continue IV fluid will resume home BP meds gradually when BP is more stable. -anemia- post-op; s/p PRBC transfusion- will monitor H/H -dyslipidemia/ depression; resumed home meds -DVT prophylaxis with lovenox- per ortho Jaja Sawant MD Feb 23, 2016 09:18
[2016-02-23] MEDS: SERTRALINE HCL 100 MG TAB PO SCH ×2 (10:03→21:00)
[2016-02-23] MEDS: buPROPion HCL 150 MG SUSTAINED RELEASE TAB PO SCH (10:03)
[2016-02-23] MEDS: SODIUM CHLORIDE 0.9% FLUSH 5 ML FLUSH IVF SCH ×2 (10:07→21:00)
[2016-02-23 10:29] LABS: HEMATOCRIT 29.4 % (35.0-46.0); REVIEW FLAG FINAL
[2016-02-23] MEDS: MAGNESIUM HYDROXIDE SUSP 30 ML CUP PO PRN (17:33)
[2016-02-23] MEDS: ATORVASTATIN 40 MG TAB PO SCH (21:00)
[2016-02-23] MEDS: MULTIVITAMINS/MINERALS THERAPEUTIC TAB PO SCH (21:00)
[2016-02-23] MEDS: DOCUSATE SODIUM 100 MG CAP PO SCH (21:00)
[2016-02-24] VITALS (7 sets, daily range): BP systolic 122–151; BP diastolic 54–82; PULSE 97–119; RESP 18–20; TEMP 97.4–99.4; O2SAT 94–99
[2016-02-24] MEDS: oxyCODONE/ACETAMINOPHEN 5 MG/325 MG TAB PO PRN ×6 (00:20→22:00)
[2016-02-24] MEDS: ALPRAZolam 0.5 MG TAB PO PRN ×2 (00:25→21:59)
[2016-02-24] MEDS: LACTATED RINGER'S 1000 ML INJ 1,000 ML IV SCH ×3 (03:13→19:13)
[2016-02-24] MEDS: PCA - TOTAL MG MORPHINE DELIVERED PER SHIFT SCH (05:51)
[2016-02-24] MEDS: MORPHINE SULFATE 30 MG/30 ML PCA IV SCH (06:09)
[2016-02-24 06:21] LABS: REVIEW FLAG FINAL
[2016-02-24] MEDS: CHLORHEXIDINE GLUCONATE 4% SOLN 120 ML BTL TOP SCH (07:00)
[2016-02-24] MEDS: LACTATED RINGER'S 1000 ML IV SCH (07:15)
--- NOTE | 2016-02-24 07:26 | PD.ORT.PN ---
Subjective Post Op Day #: 2 Subjective Remarks Patient is lying in bed, awake and alert, answering questions appropiately. She complains of mild pain in her right hip. Admits to dry lips and thirst. She plans to try walking today with PT. No other complaints noted. Objective Vitals Vital Signs Date Time Temp Pulse Resp B/P Pulse Ox O2 Delivery O2 Flow Rate FiO2 02/24/16 06:30 18 02/24/16 06:14 18 02/24/16 06:09 16 02/24/16 05:51 18 02/24/16 00:30 99.1 119 19 132/57 94 02/23/16 20:30 100.8 123 17 138/58 94 02/23/16 20:00 Nasal Cannula 2.00 02/23/16 16:00 99.0 120 20 140/44 92 02/23/16 12:00 99.5 110 16 141/51 95 02/23/16 09:00 94 Nasal Cannula 2.00 02/23/16 08:00 96.9 110 16 125/56 96 I/O 02/23/16 02/23/16 02/23/16 02/24/16 02/24/16 02/24/16 07:00 15:00 23:00 07:00 15:00 23:00 Intake Total 1221 ml 1765 ml 720 ml 421 ml 240 ml Output Total 2120 ml 1230 ml Balance -899 ml 535 ml 720 ml 421 ml 240 ml Intake Oral 480 ml 720 ml 720 ml 240 ml IV Total 741 ml 1045 ml 421 ml Output Urine Total 2050 ml 1200 ml Drainage Total 70 ml 30 ml # Voids 2 2 # Bowel Movements 0 0 0 Result Diagram: 02/24/16 0520 02/22/167 Imaging Last 48 hours Impressions Hip X-Ray 02/22/16 0000 Signed Impressions: Service Date/Time: Monday, February 22, 2016 11:31 - CONCLUSION: Total right hip prosthesis without evidence of upper pain feature. No fracture is visualized. Shima Sears MD Procedures Right total hip arthroplasty 02/21/2015 Objective Remarks The right hip dressing is dry and intact. Mild swelling around incision. No erythema or ecchymosis noted. She moves her toes and ankle freely. There is no calf discomfort and negative Homans sign. Neurovascular intact. Assessment & Plan Ortho Post Op Day #: 2 Problem List: (1) Osteoarthritis of right hip (2) Hyperlipemia (3) Hypertension (4) Depression (5) Morbid obesity with BMI of 40.0-44.9, adult Assessment and Plan The patient's ortho status is stable postoperative day #2. She will progress rehabilitation with therapy. Continue pain control and bowel regimen. Appreciate medical team involvement in care. Case management for discharge planning. Pt plans to go to rehab center. Monisha Naidu Feb 24, 2016 07:26
[2016-02-24] MEDS: MULTIVITAMINS/MINERALS THERAPEUTIC TAB PO SCH ×2 (08:13→21:58)
[2016-02-24] MEDS: ENOXAPARIN SODIUM 40 MG/0.4 ML SYRINGE SQ SCH (08:13)
[2016-02-24] MEDS: DOCUSATE SODIUM 100 MG CAP PO SCH ×2 (08:13→21:58)
[2016-02-24] MEDS: buPROPion HCL 150 MG SUSTAINED RELEASE TAB PO SCH (08:13)
[2016-02-24] MEDS: SERTRALINE HCL 100 MG TAB PO SCH ×2 (08:13→22:00)
[2016-02-24] MEDS: SODIUM CHLORIDE 0.9% FLUSH 5 ML FLUSH IVF SCH ×2 (09:00→21:58)
[2016-02-24] MEDS: LISINOPRIL 5 MG TAB PO SCH (09:30)
--- NOTE | 2016-02-24 09:30 | HHI.PR ---
Subjective Remarks in no distress. complaining of pain to the right hip. no BM. d/w the RN. Objective Vitals Vital Signs Date Time Temp Pulse Resp B/P Pulse Ox O2 Delivery O2 Flow Rate FiO2 02/24/16 08:00 98.0 102 20 151/69 96 02/24/16 06:30 18 02/24/16 06:14 18 02/24/16 06:09 16 02/24/16 05:51 18 02/24/16 00:30 99.1 119 19 132/57 94 02/23/16 20:30 100.8 123 17 138/58 94 02/23/16 20:00 Nasal Cannula 2.00 02/23/16 16:00 99.0 120 20 140/44 92 02/23/16 12:00 99.5 110 16 141/51 95 I/O 02/23/16 02/23/16 02/23/16 02/24/16 02/24/16 02/24/16 07:00 15:00 23:00 07:00 15:00 23:00 Intake Total 1221 ml 1765 ml 720 ml 421 ml 240 ml Output Total 2120 ml 1230 ml Balance -899 ml 535 ml 720 ml 421 ml 240 ml Intake Oral 480 ml 720 ml 720 ml 240 ml IV Total 741 ml 1045 ml 421 ml Output Urine Total 2050 ml 1200 ml Drainage Total 70 ml 30 ml # Voids 2 2 # Bowel Movements 0 0 0 Result Diagram: 02/24/16 0520 02/22/167 Imaging Last Impressions Hip X-Ray 02/22/16 0000 Signed Impressions: Service Date/Time: Monday, February 22, 2016 11:31 - CONCLUSION: Total right hip prosthesis without evidence of upper pain feature. No fracture is visualized. Shima Sears MD Objective Remarks GENERAL: This is a well-nourished, well-developed patient, in no apparent distress. CARDIOVASCULAR: Regular rate and regular rhythm without murmurs, gallops, or rubs. RESPIRATORY: Clear to auscultation. Breath sounds equal bilaterally. No wheezes , rales, or rhonchi. GASTROINTESTINAL: Abdomen soft, non-tender, nondistended. Normal, active bowel sounds MUSCULOSKELETAL: Extremities without clubbing, cyanosis, or edema. NEURO: Alert & Oriented x4 to person, place, time, situation. Moves all ext x4 Medications and IVs Current Medications Chlorhexidine Gluconate 1 applic 1 applic ONCE TOP Last administered on 07:29; Start 02/22/16 at 07:00; Stop 02/25/16 at 06:59 Vancomycin HCl 1000 mg/Sodium Chloride 250 ml @ 250 mls/hr FRICTION SAW OPERATOR IV Last administered on 02/22/16 07:36; Start 02/22/16 at 07:00; Stop 02/25/16 at 06:59 Clindamycin Phosphate 900 mg/ Sodium Chloride 106 ml @ 212 mls/hr FRICTION SAW OPERATOR IV Last administered on 02/22/16 07:30; Start 02/22/16 at 07:00 Lactated Ringer's 1,000 ml @ 30 mls/hr Q24H IV Last administered on 02/22/16 07:29; Start 02/22/16 at 07:15 Sodium Chloride (NS 500 ml Inj) 500 ml @ 30 mls/hr [id number] IV ; Start 02/22/16 at 07:15; Stop 02/23/16 at 07:14; Status DC Insulin Human Regular (NovoLIN R INJ) See Protocol Table ... UNSCH X1 PRN SQ SEE PROTOCOL; Start 02/22/16 at 07:15; Stop 02/23/16 at 07:14; Status DC Metoprolol Tartrate 25 mg 25 mg UNSCH X1 PRN PO SEE LABEL COMMENTS; Start at 07:15; Stop 02/23/16 at 07:14; Status DC Sodium Chloride (NS Inj) 100 ml @ As Directed STK-MED ONCE .ROUTE ; Start at 06:59; Stop 02/22/16 at 07:05; Status DC Gentamicin Sulfate (Gentamicin Inj) 240 mg STK-MED ONCE .ROUTE Last administered on 02/22/16 09:00; Start 02/22/16 at 07:09; Stop 02/22/16 at 07:10; Status DC Acetaminophen (Ofirmev Inj) 1,000 mg STK-MED ONCE IV ; Start 02/22/16 at 07:40; Stop 02/22/16 at 07:43; Status DC Famotidine (Pepcid Inj) 20 mg STK-MED ONCE .ROUTE ; Start 02/22/16 at 07:40; Stop 02/22/16 at 07:43; Status DC Midazolam HCl (Versed Inj) 5 mg STK-MED ONCE .ROUTE ; Start 02/22/16 at 07:40; Stop 02/22/16 at 07:43; Status DC Fentanyl Citrate (fentaNYL INJ) 250 mcg STK-MED ONCE .ROUTE ; Start 02/22/16 at 07:41; Stop 02/22/16 at 07:43; Status DC Dexamethasone Sodium Phosphate (Decadron Inj) 4 mg STK-MED ONCE .ROUTE ; Start 02/22/16 at 07:41; Stop 02/22/16 at 07:43; Status DC Ondansetron HCl 4 mg 4 mg STK-MED ONCE .ROUTE ; Start 02/22/16 at 07:41; Stop 02/22/16 at 07:43; Status DC Lactated Ringer's (Lr 1000 ml Inj) 1,000 ml @ 125 mls/hr Q8H IV Last administered on 02/24/16 03:13; Start 02/22/16 at 11:13 IV Flush (NS Flush) 2 ml UNSCH PRN IVF FLUSH AFTER USING IV ACCESS; Start at 11:15 IV Flush 2 ml 2 ml BID IVF Last administered on 02/23/16 21:00; Start 02/22/16 at 21:00 Clindamycin Phosphate/Sodium Chloride (Cleocin Inj/NS Inj) 106 ml @ 200 mls/hr Q8H IV Last administered on 02/23/16 06:05; Start 02/22/16 at 15:00; Stop 02/22 at 07:32; Status DC Miscellaneous Information (Post-op Orders (for Pharmacy)) STAT ONCE XX ; Start 02/22/16 at 11:15; Stop 02/22/16 at 11:51; Status DC Enoxaparin Sodium (Lovenox Inj) 40 mg Q24H SQ Last administered on 02/24/16 08 :13; Start 02/23/16 at 10:00 Miscellaneous Information UNSCH PRN XX SEE LABEL COMMENTS; Start 02/22/16 at 11 :15 Miscellaneous Medication ([facility]) ONCE ONCE XX ; Start 02/21 at 11:15; Stop 02/22/16 at 11:45; Status DC Morphine Sulfate (Morphine Inj) 4 mg Q3H PRN IV PUSH Pain >7 when off FINANCIAL COACH; Start 02/22/16 at 11:15 Oxycodone/ Acetaminophen (Percocet 5-325 Mg) 1 tab Q4H PRN PO PAIN LESS THAN 5 ON SCALE Last administered on 02/23/16 08:30; Start 02/22/16 at 11:15 Oxycodone/ Acetaminophen (Percocet 5-325 Mg) 2 tab Q4H PRN PO PAIN SCALE 5 TO 10 Last administered on 02/24/16 05:30; Start 02/22/16 at 11:15 Acetaminophen (Tylenol) 650 mg Q6H PRN PO TEMPERATURE > 101 F; Start 02/22/16 at 11:15 Multivitamins/ Minerals Therapeutic (Theragran M Tab) 1 tab BID PO Last administered on 02/24/16 08:13; Start 02/23/16 at 21:00; Stop 04/23/16 at 20:59 Ondansetron HCl (Zofran Inj) 4 mg Q6H PRN IVP NAUSEA OR VOMITING; Start at 11:15 Docusate Sodium (Colace) 100 mg BID PO Last administered on 02/24/16 08:13; Start 02/23/16 at 21:00 Al Hydrox/Mg Hydrox/Simethicone (Mag-Al Plus Susp Liq) 30 ml Q6H PRN PO INDIGESTION; Start 02/22/16 at 11:15 Temazepam (Restoril) 15 mg HS PRN PO SLEEP; Start 02/22/16 at 11:15 Bisacodyl (Dulcolax Supp) 10 mg DAILY PRN UT CONSTIPATION; Start 02/22/16 at 11: 15 Magnesium Hydroxide (Milk Of Magnesia Liq) 30 ml DAILY PRN PO CONSTIPATION Last administered on 02/23/16 17:33; Start 02/22/16 at 11:15 Povidone Iodine (Betadine 10% Top Soln) 30 applic UNSCH X1 PRN TOPICAL WOUND CARE; Start 02/22/16 at 11:15; Stop 02/24/16 at 11:14 Naloxone HCl (Narcan Inj) 0.4 mg UNSCH PRN IV RESPIRATORY RATE LESS THAN 10; Start 02/22/16 at 11:15; Stop 02/24/16 at 11:14 Diphenhydramine HCl (Benadryl Inj) 25 mg Q6H PRN IV ITCHING; Start 02/22/16 at 11:15 Morphine Sulfate (Morphine 1 Mg/ ml FINANCIAL COACH) 30 mg UNSCH IV Last administered on 06:09; Start 02/22/16 at 11:15; Stop 02/24/16 at 11:14 FINANCIAL COACH Dosage Infused (Pha) 1 Q8HR .XX Last administered on 02/24/16 05:51; Start 02/22/16 at 14:00; Stop 02/24/16 at 13:59 Morphine Sulfate (*morphine INJ PERIprocedure ONLY) 8 mg STK-MED ONCE .ROUTE Last administered on 02/22/16 11:25; Start 02/22/16 at 11:25; Stop 02/22/16 at 11: 26; Status DC Miscellaneous Information ALL NURSING DEPARTME... UNSCH PRN XX SEE LABEL COMMENTS; Start 02/22/16 at 11:30; Stop 02/23/16 at 11:29; Status DC Fentanyl Citrate (fentaNYL INJ) 250 mcg STK-MED ONCE .ROUTE ; Start 02/22/16 at 11:31; Stop 02/22/16 at 11:32; Status DC Morphine Sulfate (Morphine Inj) 4 mg STK-MED ONCE .ROUTE ; Start 02/22/16 at 11: 31; Stop 02/22/16 at 11:32; Status DC Albuterol Sulfate (*ALBUTEROL NEB PERIprocedure ONLY) 2.5 mg STK-MED ONCE NEB Last administered on 02/22/16 11:44; Start 02/22/16 at 11:44; Stop 02/22/16 at 11: 45; Status DC Midazolam HCl (Versed Inj) 5 mg STK-MED ONCE .ROUTE ; Start 02/22/16 at 12:00; Stop 02/22/16 at 12:01; Status DC Albuterol Sulfate (Proair Hfa Inh) 2 puff Q6HR PRN INH SHORTNESS OF BREATH; Start 02/22/16 at 15:00 Alprazolam (Xanax) 0.5 mg Q6H PRN PO ANXIETY Last administered on 02/24/16 00: 25; Start 02/22/16 at 15:00 Atorvastatin Calcium (Lipitor) 40 mg HS PO Last administered on 02/23/16 21:00 ; Start 02/22/16 at 21:00 Bupropion HCl (Wellbutrin Xl 24 Hr) 150 mg DAILY PO ; Start 02/23/16 at 09:00; Stop 02/23/16 at 09:42; Status DC Sertraline HCl (Zoloft) 100 mg BID PO Last administered on 02/24/16 08:13; Start 02/22/16 at 21:00 Midazolam HCl (Versed Inj) 2 mg ONCE ONCE IV Last administered on 02/22/16 13: 30; Start 02/22/16 at 13:30; Stop 02/22/16 at 13:31; Status DC Midazolam HCl (Versed Inj) 1 mg UNSCH IV ; Start 02/22/16 at 13:45; Stop at 13:46 Propofol (Diprivan 200 Mg/20 ml Inj) 200 mg STK-MED ONCE IV ; Start 02/22/16 at 14:46; Stop 02/22/16 at 14:47; Status DC Neostigmine Methylsulfate (Prostigmin Inj) 3 mg STK-MED ONCE IV ; Start 02/22/16 at 14:46; Stop 02/22/16 at 14:47; Status DC Phenylephrine HCl 1000 mcg 1,000 mcg STK-MED ONCE IV ; Start 02/22/16 at 14:46; Stop 02/22/16 at 14:47; Status DC Lactated Ringer's 500 ml @ 0 mls/hr BOLUS ONCE IV Last administered on 15:30; Start 02/22/16 at 15:30; Stop 02/22/16 at 15:31; Status DC Lactated Ringer's 500 ml @ 0 mls/hr BOLUS IV ; Start 02/22/16 at 16:00 Lactated Ringer's 500 ml @ 0 mls/hr BOLUS ONCE IV Last administered on 17:10; Start 02/22/16 at 19:00; Stop 02/22/16 at 19:01; Status DC Sodium Chloride (NS 250 ml Inj) 250 ml @ 15 mls/hr ONCE ONCE IV Last administered on 02/22/16 22:30; Start 02/22/16 at 22:30; Stop 02/23/16 at 15:09; Status DC Acetaminophen (Tylenol) 650 mg Q4H PRN PO SEE LABEL COMMENTS Last administered on 02/22/16 22:45; Start 02/22/16 at 22:30; Stop 02/23/16 at 02:31; Status DC Diphenhydramine HCl (Benadryl) 25 mg Q4H PRN PO SEE LABEL COMMENTS Last administered on 02/22/16 22:45; Start 02/22/16 at 22:30; Stop 02/23/16 at 02:31; Status DC Furosemide (Lasix Inj) 20 mg ONCE ONCE IV Last administered on 02/23/16 02:20 ; Start 02/22/16 at 22:30; Stop 02/22/16 at 22:35; Status DC Ondansetron HCl 4 mg 4 mg STK-MED ONCE IV PUSH ; Start 02/22/16 at 12:00; Stop at 09:15; Status DC Lactated Ringer's (Lr 1000 ml Inj) 2,000 ml @ As Directed STK-MED ONCE IV ; Start 02/22/16 at 12:00; Stop 02/23/16 at 09:15; Status DC Bupropion HCl (Wellbutrin Sr) 150 mg DAILY PO Last administered on 02/24/16 08 :13; Start 02/24/16 at 09:00 A/P Assessment and Plan A/P - osteoarthritis- s/p right total hip arthroplasty continue with pain control and PT- management per ortho -hypertension with hypotensive episode;now BP on high side; will restart lisinopril at a low dose- will monitor and adjust the regimen as needed. -anemia- post-op; s/p PRBC transfusion- will monitor H/H -dyslipidemia/ depression; resumed home meds -DVT prophylaxis with lovenox- per ortho Jaja Sawant MD Feb 24, 2016 09:30
[2016-02-24] MEDS: ATORVASTATIN 40 MG TAB PO SCH (21:59)
[2016-02-25] VITALS: BP 149/78; PULSE 101; RESP 16; TEMP 99.1; O2SAT 99
[2016-02-25] MEDS: LACTATED RINGER'S 1000 ML INJ 1,000 ML IV SCH ×2 (03:13→07:17)
[2016-02-25] MEDS: oxyCODONE/ACETAMINOPHEN 5 MG/325 MG TAB PO PRN ×2 (03:17→08:41)
[2016-02-25 06:04] LABS: BICARBONATE 29.6 MEQ/L (21.0-32.0); POTASSIUM 3.3 MEQ/L (3.5-5.1)
[2016-02-25] MEDS: LACTATED RINGER'S 1000 ML IV SCH (06:27)
--- NOTE | 2016-02-25 07:31 | PD.ORT.PN ---
Subjective Post Op Day #: 3 Pain Scale: 4 Subjective Remarks The patient is awake alert and answers questions appropriately. She complains of right hip pain. She states it is improving. She has some discomfort with use of the BALTA hose but otherwise no specific complaint. Objective Vitals Vital Signs Date Time Temp Pulse Resp B/P Pulse Ox O2 Delivery O2 Flow Rate FiO2 02/25/16 00:00 99.1 101 16 149/78 99 02/24/16 21:55 95 Nasal Cannula 2.00 02/24/16 21:45 2.00 02/24/16 20:00 99.4 106 18 122/62 95 02/24/16 16:00 98.0 105 20 148/54 96 02/24/16 12:00 97.4 97 20 147/82 99 02/24/16 10:49 94 Nasal Cannula 2.00 02/24/16 08:00 98.0 102 20 151/69 96 I/O 02/24/16 02/24/16 02/24/16 02/25/16 02/25/16 02/25/16 07:00 15:00 23:00 07:00 15:00 23:00 Intake Total 421 ml 720 ml 240 ml 240 ml Output Total 550 ml Balance 421 ml 170 ml 240 ml 240 ml Intake Oral 720 ml 240 ml 240 ml IV Total 421 ml Output Urine Total 550 ml # Voids 4 2 1 # Bowel Movements 0 0 Result Diagram: 02/24/16 0520 02/25/16 0449 Imaging Last 48 hours Impressions Hip X-Ray 02/22/16 0000 Signed Impressions: Service Date/Time: Monday, February 22, 2016 11:31 - CONCLUSION: Total right hip prosthesis without evidence of upper pain feature. No fracture is visualized. Shima Sears MD Procedures Right total hip arthroplasty 02/21/2015 Objective Remarks The right hip dressing is dry and intact. Mild swelling around incision. No erythema or ecchymosis noted. She moves her toes and ankle freely. There is no calf discomfort and negative Homans sign. Neurovascular intact. Assessment & Plan Ortho Post Op Day #: 3 Problem List: (1) Osteoarthritis of right hip (2) Hyperlipemia (3) Hypertension (4) Depression (5) Morbid obesity with BMI of 40.0-44.9, adult Assessment and Plan The patient's ortho status is stable postoperative day #3 for discharge to rehabilitation. Follow-up as scheduled in approximately 3 weeks. Ariel Ruiz MD Feb 25, 2016 07:31
[2016-02-25] MEDS ORDERED: ENOX40P SQ (07:36)
[2016-02-25] MEDS ORDERED: OXYC1TAB63 PO (07:36)
[2016-02-25] MEDS ORDERED: MISC-163 (07:38)
[2016-02-25] MEDS ORDERED: WALKER WHEELS/F1 MIS (07:38)
--- NOTE | 2016-02-25 07:45 | HHI.DS ---
Discharge Summary Admission Date Feb 22, 2016 at 06:04 Discharge Date: Feb 25, 2016 Admitting Diagnosis Osteoarthritis right hip Diagnosis: (1) Osteoarthritis of right hip (2) Hyperlipemia (3) Hypertension (4) Depression (5) Morbid obesity with BMI of 40.0-44.9, adult Procedures Right total hip arthroplasty 02/21/2015 Brief History This is a 75 year old female patient with a greater than one-year history of right hip and knee pain. The patient initially presented for her knee at which time it was noted she had advanced arthritic changes involving her hip. It was felt her knee pain was referred. She did undergo an intra-articular injection of the hip which did improve both her right hip and knee symptomatology for several months. She said 20 had significant progression. She is severely limited in her activity. She's been unresponsive to nonoperative measures including nonsteroidal anti-inflammatory medication, activity modification, injection and attempted weight loss. X-rays show advanced osteoarthritis with [id number] apposition, osteophyte formation and subchondral sclerosis. Given the alternatives of the treatment she presents for total hip arthroplasty. CBC/BMP: 02/24/16 0520 02/25/16 0449 Significant Findings Laboratory Tests Test 02/22/16 02/22/16 02/23/16 02/24/16 12:00 21:17 10:16 05:20 Hemoglobin 10.2 GM/DL 9.0 GM/DL 9.9 GM/DL 10.3 GM/DL (11.6-15.3) (11.6-15.3) (11.6-15.3) (11.6-15.3) Hematocrit 31.4 % 27.1 % 29.4 % 31.0 % (35.0-46.0) (35.0-46.0) (35.0-46.0) (35.0-46.0) Red Blood Count 3.08 MIL/MM3 (4.00-5.30) Neutrophils (%) (Auto) 77.8 % (16.0-70.0) Monocytes (%) (Auto) 12.2 % (0.0-8.0) Neutrophils # (Auto) 8.4 TH/MM3 (1.8-7.7) Monocytes # (Auto) 1.3 TH/MM3 (0-0.9) Creatinine 1.20 MG/DL (0.50-1.00) Estimat Glomerular Filtration 44 ML/MIN (>89) Rate Random Glucose 112 MG/DL (74-106) Calcium Level 7.8 MG/DL (8.5-10.1) Total Protein 4.9 GM/DL (6.4-8.2) Albumin 2.5 GM/DL (3.4-5.0) Test 02/25/16 04:49 Potassium Level 3.3 MEQ/L (3.5-5.1) Random Glucose 108 MG/DL (74-106) Imaging AP view of the right hip 02/22/16 reveals good positioning of the total hip arthroplasty without fracture or dislocation. PE at Discharge The right hip dressing is dry and intact. Mild swelling around incision. No erythema or ecchymosis noted. She moves her toes and ankle freely. There is no calf discomfort and negative Homans sign. Neurovascular intact. Hospital Course On the day of admission the patient was taken to the operating room where she underwent a right total hip arthroplasty. The patient tolerated the procedure well. For details of the operative procedure please see dictated operative note. The patient did have postoperative anemia requiring transfusion. On postoperative #2 hemoglobin was 10.3. The patient moderate pain which improved daily. Physical therapy was consulted for gait training and range of motion exercise per [facility]R protocol. The patient was placed on a partial weightbearing status based upon the poor quality of bone. She was placed on clindamycin for infection prophylaxis secondary to penicillin allergy and Lovenox for DVT prophylaxis. At the time of discharge the patient was afebrile. She reported some serous drainage from the incision however the dressing was dry and intact and there is minimal swelling. She had no calf discomfort and a negative Homans sign. Case management was consulted for discharge planning the patient will be discharged to a alf facility. She will follow with the undersigned in approximately 3 weeks. Orders have been given for wound care and staple removal. She will continue Lovenox for DVT prophylaxis and was prescribed Percocet for pain. The patient acknowledges full understanding of the plan of treatment and agrees to it. Pt Condition on Discharge: Good Discharge Disposition: Discharge to SNF Discharge Instructions Diet Instructions: As Tolerated, No Restrictions Activities You Can Perform: Partial Weight Bearing Activities to Avoid: Lifting/Bending Ariel Ruiz MD Feb 25, 2016 07:45
[2016-02-25 08:00] VITALS: BP 128/62; PULSE 107; RESP 16; TEMP 98.5; O2SAT 92
[2016-02-25] MEDS: ENOXAPARIN SODIUM 40 MG/0.4 ML SYRINGE SQ SCH (08:38)
[2016-02-25] MEDS: MAGNESIUM HYDROXIDE SUSP 30 ML CUP PO PRN (08:39)
[2016-02-25] MEDS: DOCUSATE SODIUM 100 MG CAP PO SCH (08:39)
[2016-02-25] MEDS: LISINOPRIL 5 MG TAB PO SCH (08:39)
[2016-02-25] MEDS: SERTRALINE HCL 100 MG TAB PO SCH (08:39)
[2016-02-25] MEDS: MULTIVITAMINS/MINERALS THERAPEUTIC TAB PO SCH (08:39)
[2016-02-25] MEDS: buPROPion HCL 150 MG SUSTAINED RELEASE TAB PO SCH (08:39)
[2016-02-25] MEDS: SODIUM CHLORIDE 0.9% FLUSH 5 ML FLUSH IVF SCH (08:43)
[2016-02-25] MEDS ORDERED: ALPR0.5T3 PO (13:59)
== END 2016-02-25 10:48 | DRG 470 ==
LOC: HSDI 02-22 06:04 → N06A 02-22 18:22
PROVIDERS: ADMIT Orthopaedic Surgery Sports Medicine; ATTEND Orthopaedic Surgery Sports Medicine
PROC: 30233N1 Transfusion of Nonautologous Red Blood Cells into Peripheral Vein, Percutaneous Approach (ICD-10-PCS; 2016-02-22)
PROC: 0SR903A Replacement of Right Hip Joint with Ceramic Synthetic Substitute, Uncemented, Open Approach (ICD-10-PCS; principal; 2016-02-22 07:52)
DX: M16.11 Unilateral primary osteoarthritis, right hip (principal); I95.9 Hypotension, unspecified; Z68.41 Body mass index [BMI] 40.0-44.9, adult; E66.01 Morbid (severe) obesity due to excess calories; I10 Essential (primary) hypertension; F32.9 Major depressive disorder, single episode, unspecified; E78.5 Hyperlipidemia, unspecified; M81.0 Age-related osteoporosis without current pathological fracture; Z85.828 Personal history of other malignant neoplasm of skin; D64.89 Other specified anemias
CPT/HCPCS: 36430; 73501; 80048; 80053; 85014; 85018; 85025; 85610; 85730; 86077; 86850; 86870; 86900; 86901; 86902; 86920; 86922; 88304; 88311; 94150; 94664; C1776; J0131; J1100; J1580; J1650; J1940; J2250; J2270; J2370; J2405; J2710; J3010; J3370; J7050; J7120; J7613; P9016